=== PATIENT | female | born 1945 | race Caucasian/White ===

== ENCOUNTER 2021-03-02 10:39 | Emergency (ER) | payer MEDICARE, OTHER ==
[~2021-03-02 10:39] MED LIST: ACTOS15 MG PO; SYNTHROID100 MCG PO; ULTRAM50 MG PO; VOLTAREN **OUT50 MG TOP
[2021-03-02 11:06] LABS: BASOPHIL 0.7 % (0-2); EOSINOPHIL 1.7 % (0-7); HCT 42.7 % (37.0-47.0); HGB 14.3 g/dl (12.5-16.0); LYMPHOCYTE 17.1 % (15-48); MCH 30.1 pg (25.0-31.0); MCHC 33.5 g/dL (32.0-36.0); MCV 89.9 fL (78.0-100.0); MONOCYTE 9.5 % (0-12); MPV 11.6 fL (6.0-9.5); NEUTROPHIL 70.8 % (41-80); NRBC 0; PLT 188 K/uL (150-400); RBC 4.75 M/uL (4.20-5.40); RDW 13.1 % (11.5-14.0); WBC 5.9 K/uL (4.0-10.5)
[2021-03-02 11:32] LABS: BILIRUBIN - TOTAL 0.8 mg/dL (0.2-1.0); BUN/CREAT RATIO (CALC) 24.2 RATIO; CREATININE 0.66 mg/dL (0.51-0.95); GLOBULIN (CALCULATION) 2.9 g/dL; POTASSIUM 4.2 mmol/L (3.5-5.1); TOTAL PROTEIN 6.9 g/dL (6.4-8.2)
== END 2021-03-02 12:18 | disposition other institution (70) ==
LOC: FER 10:39
PROVIDERS: Emergency Medicine
DX: I63.9 Cerebral infarction, unspecified (principal); R13.10 Dysphagia, unspecified; R47.01 Aphasia; I11.0 Hypertensive heart disease with heart failure; I50.9 Heart failure, unspecified; E11.9 Type 2 diabetes mellitus without complications; Z79.82 Long term (current) use of aspirin; Z88.0 Allergy status to penicillin
CPT/HCPCS: 36415; 70450; 71045; 80053; 84484; 85025; 93005; J7040